=== PATIENT | female | born 1995 | race Caucasian/White ===

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

== ENCOUNTER 2017-01-12 14:14 | Emergency (ER) | payer OTHER ==
[~2017-01-12] VITALS: Ht 162.6 cm; Wt 49.0 kg
[2017-01-12 14:15] VITALS: BP 116/71
[2017-01-12 15:02] LABS: HCG UR OBC PASS
== END 2017-01-12 16:41 | disposition home or self-care (01) ==
LOC: ED 14:41
DX: S39.012A Strain of muscle, fascia and tendon of lower back, initial encounter (principal); X58.XXXA Exposure to other specified factors, initial encounter; Y93.89 Activity, other specified; Y92.89 Other specified places as the place of occurrence of the external cause; Y99.8 Other external cause status
CPT/HCPCS: 72110; 81003; 81025; 99285

== ENCOUNTER 2017-09-26 16:21 | Emergency (ER) | payer OTHER ==
[~2017-09-26] VITALS: Ht 162.6 cm; Wt 52.2 kg
[2017-09-26 16:59] LABS: BASOPHILS # (AUTO) 0.03 x10^3/uL (0-0.3); BASOPHILS % (AUTO) 1 % (0-1); EOSINOPHILS # (AUTO) 0.06 x10^3/uL (0-0.8); EOSINOPHILS % (AUTO) 1 % (1-7); LYMPHOCYTES # (AUTO) 2.56 x10^3/uL (1-6.1); LYMPHOCYTES % (AUTO) 35 % (22-44); MD NO; MEAN CORPUSCULAR HEMOGLOBIN 28.9 pg (27.0-34.8); MEAN CORPUSCULAR HGB CONC 33.9 g/dL (32.4-35.8); MEAN CORPUSCULAR VOLUME 85.1 fL (80-100); MEAN PLATELET VOLUME 7.6 fL (7.4-10.4); MONOCYTES # (AUTO) 0.56 x10^3/uL (0-1.4); MONOCYTES % (AUTO) 8 % (2-9); NEUTROPHILS # (AUTO) 4.13 x10^3/uL (1.8-8.0); NEUTROPHILS % (AUTO) 56 % (42-75); PLATELET COUNT 279 x10^3/uL (130-400); RED BLOOD COUNT 4.96 x10^6/uL (3.82-5.3); RED CELL DISTRIBUTION WIDTH 12.4 % (9.6-15.2)
[2017-09-26] MEDS ORDERED: KETOROLAC 30 MG/1 ML IM ONE (17:03)
[2017-09-26 17:10] LABS: ANION GAP 8 mmol/L (5-15); CALCIUM 9.1 mg/dL (8.5-10.1); CHLORIDE 109 mmol/L (98-107)
[2017-09-26 17:16] LABS: CREATININE 0.89 mg/dL (0.55-1.02); TROPONIN I < 0.015 ng/mL (0.000-0.045)
[2017-09-26] MEDS ORDERED: KETOROLAC 30 MG/1 ML ONE (17:28)
[2017-09-26 17:47] LABS: MICROSCOPIC NOT IND
[2017-09-26 17:55] LABS: CULTURE INDICATED? NO
[2017-09-26 18:16] VITALS: BP 114/59
== END 2017-09-26 18:18 | disposition home or self-care (01) ==
LOC: ED 17:56
DX: R07.2 Precordial pain (principal); R10.2 Pelvic and perineal pain
CPT/HCPCS: 36415; 71046; 80048; 81003; 82040; 84484; 84703; 85025; 85379; 93005; 96372; 99285; J1885

== ENCOUNTER → 2017-11-15 | Outpatient (CLI) | payer OTHER ==
[~2017-11-15] MED LIST: GADOBUTROL 7.5 MMOL/7.5 ML PFS ONE
== END | disposition home or self-care (01) ==
LOC: CFH 12:45
PROVIDERS: ATTEND Specialist
DX: G56.21 Lesion of ulnar nerve, right upper limb (principal)
CPT/HCPCS: 73220; A9585

== ENCOUNTER 2020-04-25 19:38 | Emergency (ER) | payer OTHER ==
[~2020-04-25] VITALS: Ht 162.6 cm; Wt 65.5 kg
--- NOTE | 2020-04-25 19:48 | NUR ---
PT REPORTS BEING 5 WEEKS 6 DAYS . LMP: 03/13/20. PENDING OB APPT 05/19/20. STARTED SPOTTING ABOUT 30 MINS [employer]. NO PAD USE. MILD CRAMPING. 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 DENIES TRAUMA, FALLS. DENIES SEXUAL ACTIVITY LAST NOC. AB1. LAST ORAL INTAKE: 1800
[2020-04-25] MEDS ORDERED: PRENATAL (19:53)
[2020-04-25 19:55] VITALS: BP 111/65
[2020-04-25 20:58] LABS: BASOPHILS % (AUTO) 1 % (0-1); EOSINOPHILS % (AUTO) 0 % (1-7); LYMPHOCYTES % (AUTO) 25 % (22-44); MEAN CORPUSCULAR HEMOGLOBIN 29.4 pg (27.0-34.8); MEAN CORPUSCULAR HGB CONC 35.3 g/dL (32.4-35.8); MEAN PLATELET VOLUME 7.2 fL (7.4-10.4); MONOCYTES % (AUTO) 6 % (2-9); NEUTROPHILS % (AUTO) 68 % (42-75); PLATELET COUNT 316 x10^3/uL (130-400); RED BLOOD COUNT 4.37 x10^6/uL (3.82-5.3); RED CELL DISTRIBUTION WIDTH 12.4 % (9.6-15.2)
[2020-04-25 21:01] LABS: MD NO
--- NOTE | 2020-04-25 21:26 | NUR ---
QUICK CATH URINE SPECIMEN OBTAINED; CLEAR YELLOW
[2020-04-25 21:33] LABS: MICROSCOPIC NOT IND
--- NOTE | 2020-04-25 21:59 | NUR ---
RHOGRAM DISCUSSED WITH PATIENT. RHOGAM ORDERED; CONSENT SIGNED.
[2020-04-25] MEDS ORDERED: RHOGAM FROM BLOOD BANK 1 NOTE EA IM/IV ONE (22:00)
--- NOTE | 2020-04-25 22:05 | NUR ---
PT REPORT TO REYES MEJIAS. PT CARE TRANSFERRED.
--- NOTE | 2020-04-25 22:48 | NUR ---
Obtained rhogam from blood bank. Verified pt info and rhogam info per protocol.
== END 2020-04-25 23:05 | disposition home or self-care (01) ==
LOC: ED 21:11
DX: O20.0 Threatened abortion (principal); Z3A.01 Less than 8 weeks gestation of pregnancy
CPT/HCPCS: 36415; 76801; 81003; 84702; 85025; 86850; 86900; 96372; 99284; J2790; 36430; 99285